=== PATIENT | female | born 1985 | race Caucasian/White ===

== ENCOUNTER → 2017-11-13 | Outpatient (CLI) | payer OTHER ==
--- NOTE | 2017-11-13 09:44 | DIAGNOSTIC IMAGING REPORT ---
SMALL BOWEL STUDY CLINICAL HISTORY: 32 years-old Female with ABDOMINAL PAIN. Follow-up study in a patient with recent small bowel obstruction. TECHNIQUE: Oral barium was administered to the patient and serial radiographs of the abdomen were performed. COMPARISON STUDY: None available FLUOROSCOPY TIME: 0.4 minutes. FINDINGS: [employer] radiograph of the abdomen demonstrates multiple nondistended loops of air-filled small and large bowel scattered throughout the abdomen. There are no signs of bowel obstruction or evidence of gross pneumoperitoneum. Upon the administration of oral barium contrast, there is prompt opacification of the gastric lumen and proximal small bowel. Transit to the large bowel occurred at approximately 1 hour. Subsequently, spot fluoroscopic images of the abdomen were obtained and demonstrate freely movable bowel in all four abdominal quadrants. The terminal ileum appears unremarkable. IMPRESSION: Unremarkable small bowel follow-through without evidence of small bowel obstruction. The above report was generated using voice recognition software. It may contain grammatical, syntax or spelling errors. Electronically signed by: Earle Kumar M.D. 11/13/2017 9:43 AM Dictated Date/Time: 11/13/2017 9:36 AM
== END | disposition home or self-care (01) ==
LOC: C.RAD 07:44
PROVIDERS: ATTEND Internal Medicine Gastroenterology
DX: R10.84 Generalized abdominal pain (principal)